=== PATIENT | female | born 1995 | race Two or more races ===

== ENCOUNTER 2020-04-10 22:57 | Emergency (ER) | payer OTHER ==
[~2020-04-10] VITALS: Ht 170.2 cm; Wt 109.1 kg
[2020-04-10] MEDS ORDERED: CHOL400T56 PO (22:59)
[2020-04-11] MEDS ORDERED: HYDROCODONE/ACETAMINOPHEN 5-325 MG TABLET PO ONE (01:30)
[2020-04-11] MEDS ORDERED: KETOROLAC TROMETHAMINE 60 MG/2 ML VIAL IM ONE (01:30)
[2020-04-11 01:51] VITALS: BP 135/71
== END 2020-04-11 02:40 | disposition home or self-care (01) ==
LOC: EMS 22:57
DX: S86.812A Strain of other muscle(s) and tendon(s) at lower leg level, left leg, initial encounter (principal); F12.90 Cannabis use, unspecified, uncomplicated; W19.XXXA Unspecified fall, initial encounter; Y93.89 Activity, other specified; Y92.89 Other specified places as the place of occurrence of the external cause; Y99.8 Other external cause status
CPT/HCPCS: 29505; 73562 ×2; 96372; 99283; J1885; 29105; 29530